=== PATIENT | male | born 1955 | race Caucasian/White ===

== ENCOUNTER 2022-12-22 08:41 | Outpatient (CLI) | payer MEDICARE ==
[2022-12-22 09:34] LABS: Hematocrit 45.7 % (38.8-50.0); Hemoglobin 15.1 g/dL (13.5-17.5); Mean Corpuscular Volume 81.8 fl (81.2-95.1); Mean Platelet Volume 10.8 fl (7.4-10.4); Platelet Count 228 10x3/uL (150-450); RBC Distribution Width 12.1 % (11.5-14.5); Red Blood Cell (RBC) Count 5.59 10x6/uL (4.32-5.72)
[2022-12-22 10:08] LABS: PTT 27.9 sec (22.0-33.0); Prothrombin Time 10.4 sec (9.5-12.1)
[2022-12-22 10:11] LABS: Anion Gap 12 mmol/L (10-20); BUN (Urea Nitrogen) 14 mg/dL (8.4-25.7); Calc. Creatinine Clearance 0 mL/min (70-130); Calcium 9.1 mg/dL (7.8-10.44); Carbon Dioxide 27 mmol/L (23-31); Chloride 105 mmol/L (98-107); Estimated GFR 94; Glucose 102 mg/dL (80-115); Sodium 140 mmol/L (136-145)
== END 2022-12-22 08:42 | disposition home or self-care (01) ==
LOC: LABBT 08:41
PROVIDERS: ATTEND Urology
DX: Z01.818 Encounter for other preprocedural examination (principal); N21.0 Calculus in bladder; N40.1 Benign prostatic hyperplasia with lower urinary tract symptoms
CPT/HCPCS: 80048; 85027; 85610; 85730; 87086; 93005; 93010

== ENCOUNTER 2022-12-27 06:18 | Inpatient (IN) | payer MEDICARE ==
[2022-12-22 09:13] VITALS: BMI 26.9
[2022-12-27] MEDS ORDERED: Dexmedetomidine 200 MCG/2 ML VIAL ONE (06:21)
[2022-12-27] MEDS ORDERED: SUGAMMADEX SODIUM 200 MG/2 ML VIAL ONE (06:21)
[2022-12-27] MEDS ORDERED: fentaNYL PF 100 MCG/2 ML SYRINGE ONE (06:22)
[2022-12-27] MEDS ORDERED: LevoFLOXacin 500 mg/D5W 100 ML BAG ONE (07:16)
[2022-12-27] MEDS ORDERED: Lidocaine 1% PF 5 ML VIAL ONE (07:36)
[2022-12-27] MEDS ORDERED: PROPOFOL 200 MG/20 ML VIAL ONE (07:36)
[2022-12-27] MEDS ORDERED: Ondansetron PF 4 MG/2 ML Vial ONE ×2 (07:36→11:41)
[2022-12-27] MEDS ORDERED: Rocuronium Bromide 10 MG/ML (10ML VIAL) ONE (07:36)
[2022-12-27] MEDS ORDERED: ePHEDrine Sulfate 50 MG/10 ML VIAL ONE (07:36)
[2022-12-27] MEDS ORDERED: Dexamethasone 20 MG/5 ML VIAL ONE (07:36)
[2022-12-27] MEDS ORDERED: Acetaminophen 500 MG TAB PO PRN (09:36)
[2022-12-27] MEDS: Hyoscyamine SL 0.125 MG TAB SL SCH ×2 (14:04→18:11)
[2022-12-27] MEDS: D5 1/2 NS w/20 mEq KCL 1,000 ML IV SCH ×2 (14:06→18:13)
[2022-12-27] MEDS ORDERED: Ondansetron PF 4 MG/2 ML Vial IVP PRN (14:55)
[2022-12-27] MEDS ORDERED: Hyoscyamine SL 0.125 MG TAB SL SCH (17:30)
[2022-12-27] MEDS ORDERED: Finasteride 5 MG TAB PO SCH (21:00)
[2022-12-27] MEDS ORDERED: Lisinopril 20 MG TAB PO SCH (21:00)
[2022-12-28] MEDS: Docusate 100 MG CAP PO SCH ×2 (00:13→09:02)
[2022-12-28] MEDS: Hyoscyamine SL 0.125 MG TAB SL SCH ×2 (00:51→06:04)
[2022-12-28] MEDS: D5 1/2 NS w/20 mEq KCL 1,000 ML IV SCH ×2 (00:52→12:43)
[2022-12-28] MEDS ORDERED: LevoFLOXacin 500 mg/D5W 500 MG in Premix 1 BAG IVPB SCH (08:00)
[2022-12-28] MEDS ORDERED: LevoFLOXacin 500 MG TAB PO SCH (08:15)
[2022-12-28 12:43] VITALS: BP 131/82; TEMP 97.5
[2022-12-29] MEDS ORDERED: LevoFLOXacin 500 MG TAB PO SCH (08:00)
== END 2022-12-28 15:42 | disposition home or self-care (01) | DRG 713 ==
LOC: SDC 06:18 → OBSVTOIN 09:36 → SJJU 09:36
PROVIDERS: ADMIT Urology; ATTEND Urology
PROC: 0VB08ZZ Excision of Prostate, Via Natural or Artificial Opening Endoscopic (ICD-10-PCS; principal; 2022-12-27)
PROC: 0TCB8ZZ Extirpation of Matter from Bladder, Via Natural or Artificial Opening Endoscopic (ICD-10-PCS; 2022-12-27)
PROC: 3E033XZ Introduction of Vasopressor into Peripheral Vein, Percutaneous Approach (ICD-10-PCS; 2022-12-27)
DX: N40.1 Benign prostatic hyperplasia with lower urinary tract symptoms (principal); N20.1 Calculus of ureter; I10 Essential (primary) hypertension; R97.20 Elevated prostate specific antigen [PSA]; N21.0 Calculus in bladder; Z79.899 Other long term (current) drug therapy; Z98.890 Other specified postprocedural states
CPT/HCPCS: 82365; 88300; 88305; J1100; J1956; J2405; J2704; J3480